=== PATIENT | male | born 1955 | race Caucasian/White ===

== ENCOUNTER 2019-03-01 08:43 | Outpatient (CLI) | payer MEDICARE, MEDICAID ==
--- NOTE | 2019-03-01 14:28 | NM ---
THREE-PHASE BONE SCAN: INDICATION: Concern for mechanical loosening of the internal hardware of the right knee. Radial pharmaceutical: 31.2 mCi of technetium 99m MDP IV. FINDINGS: On the blood flow images, there is symmetric blood flow to both lower extremities. On the blood pool images, there is some minimal uptake seen involving the medial aspect of the tibial prosthetic component of the left knee. 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 No abnormal soft tissue uptake is grossly evident. Delayed phase images demonstrate fairly symmetric periprosthetic bone uptake that can often be seen in knee prosthesis. Mo re accentuated uptake is seen along the medial aspect of the tibia. This is not above what could be expected for normal periprosthetic activity. IMPRESSION: 1. No overt suspicious scintigraphic findings to suggest loosening of the right total knee prosthesis . Would recommend correlation with patient's radiographs. 2. There is fairly symmetrical periprosthetic activity seen on delayed phase images which can persist indefinitely with knee prostheses and be a normal finding on bone scans. No suspicious activity is seen involving the right knee on the blood flow or blood pool images. Transcribed Date/Time: 03/01/2019 2:35 PM
== END 2019-03-01 08:44 | disposition home or self-care (01) ==
LOC: NM 08:43
PROVIDERS: ATTEND Orthopaedic Surgery
DX: T84.032A Mechanical loosening of internal right knee prosthetic joint, initial encounter (principal)
CPT/HCPCS: 78315; A9503